=== PATIENT | female | born 1965 | race Caucasian/White ===

== ENCOUNTER 2016-12-30 09:58 | Emergency (ER) | payer OTHER ==
[2016-12-30] MEDS ORDERED: NS 0.9% 1000 ML* 2,000 ML IV ONE (11:43)
[2016-12-30 12:38] LABS: Urine Bilirubin Negative (Negative); Urine Glucose Negative (Negative); Urine Nitrite Negative (Negative)
[2016-12-30 12:52] LABS: Hematocrit 43 % (35-47); Hemoglobin 14.2 g/dl (12.0-16.0); Mean Corpuscular HGB Conc 33 g/dl (31-36); Mean Corpuscular Hemoglobin 29 pg (27-31); Mean Corpuscular Volume 88 fL (80-97); Mean Platelet Volume 11 um3 (7.4-10.4); Red Blood Count 4.85 10^6/ul (4.0-5.4); Red Cell Distribution Width 13 % (10.5-15); White Blood Count 8.6 10^3/ul (3.5-10.8)
[2016-12-30 13:14] LABS: Albumin 4.5 g/dL (3.2-5.2); BUN/Creatinine Ratio 27.1 (8-20); C Reactive Protein 4.86 mg/L (< 5.00); Calcium 10.2 mg/dL (8.6-10.3); EGFR African American 90.3 (>60); EGFR Non-African American 70.2 (>60); Globulin 2.8 g/dL (2-4); Potassium 3.7 mmol/L (3.5-5.0); Total Bilirubin 0.5 mg/dL (0.2-1.0); Total Protein 7.3 g/dL (6.4-8.9)
[2016-12-30] MEDS ORDERED: Ondansetron INJ* 2 MG/ML VIAL IV ONE (14:07)
--- NOTE | 2016-12-30 14:13 | ED ---
Abdominal Pain/Female - HPI Summary HPI Summary: Pt is a 51 yo WF presents to the ED with report of abdominal pain x 18 hours. Pt states woke approx 1am with RLQ pain. pt states pain increased throughout the morning hours. Pt states took Naproxyn with improvement. Pt states went to work (works at [employer]) and reports pain continued to be present and mild through the day. Pt states has mild nausea, no vomiting. no fevers, chills, rash. no SUAZO, vision changes. Pt denies trauma. No dysuria, hematuria. No diarrhea. No blood, black stools. No vaginal discharge, odor, itching. Pt is post-menopausal. Pt does have MS and take Copaxone. - History of Current Complaint Chief Complaint: EDAbdPain Stated Complaint: ABD PAIN Time Seen by Provider: 12/30/16 13:48 Hx Last Menstrual Period: february 2016 ?: No Onset/Duration: Gradual Onset, Lasting Hours Timing: Constant Severity Currently: Mild Pain Intensity: 2 Pain Scale Used: 0-10 Numeric Location: Discrete At: RLQ Radiates: No Character: Other: - pressure, ache Aggravating Factor(s): Movement, Other: - palpation Alleviating Factor(s): Position Associated Signs and Symptoms: Positive: Negative. Negative: Diaphoresis, Fever , Cough, Chest Pain, Back Pain Allergies/Adverse Reactions: Allergies Allergy/AdvReac Type Severity Reaction Status Date / Time Sulfa Drugs Allergy Rash Verified 12/30/16 10:05 Home Medications: Home Medications Naproxen TAB* [Naprosyn TAB*] 250 mg PO Q8H PRN 12/30/16 [History Confirmed ] PMH/Surg Hx/FS Hx/Imm Hx Previously Healthy: Yes Endocrine/Hematology History: Denies: Hx Diabetes Cardiovascular History: Denies: Hx Hypertension, Hx Pacemaker/ICD Respiratory History: Reports: Hx Asthma - exercise induced, Hx Seasonal Allergies History: Denies: Hx Dialysis, Hx Renal Disease Sensory History: Denies: Hx Hearing Aid Neurological History: Reports: Other Neuro Impairments/Disorders - MS Psychiatric History: Denies: Hx Panic Disorder - Cancer History Hx Chemotherapy: No Hx Radiation Therapy: No - Surgical History Surgery Procedure, Year, and Place: 1994 Infectious Disease History: No Infectious Disease History: Denies: Traveled Outside the [place] in Last 30 Days - Family History Known Family History: Positive: Cardiac Disease - Social History Alcohol Use: None Substance Use Type: Reports: None Smoking Status (MU): Never Smoked Tobacco Have You Smoked in the Last Year: No Review of Systems Positive: Fatigue. Negative: Chills Eyes: Negative ENT: Negative Cardiovascular: Negative Negative: Palpitations, Chest Pain Respiratory: Negative Negative: Shortness Of Breath, Cough Positive: Abdominal Pain, Nausea. Negative: Vomiting, Diarrhea Genitourinary: Negative Skin: Negative Neurological: Negative Psychological: Normal All Other Systems Reviewed And Are Negative: Yes Physical Exam Triage Information Reviewed: Yes Vital Signs On Initial Exam: Initial Vitals Temp Pulse Resp BP Pulse Ox 96.1 F 78 16 156/85 96 12/30/16 10:01 12/30/16 10:01 12/30/16 10:12/30/16 10:12/30/16 10:01 Vital Signs Reviewed: Yes Appearance: Positive: Well-Appearing, No Pain Distress, Well-Nourished Skin: Positive: Warm, Skin Color Reflects Adequate Perfusion, Dry Head/Face: Positive: Normal Head/Face Inspection Eyes: Positive: Normal, EOMI, ROBERT ENT: Positive: TMs normal Neck: Positive: Supple, Nontender Respiratory/Lung Sounds: Positive: Clear to Auscultation, Breath Sounds Present. Negative: Decreased Breath Sounds Cardiovascular: Positive: Normal, RRR. Negative: Murmur Abdomen Description: Negative: Nontender - + TTP RLQ no guarding, no rebound present/decreased BS Bowel Sounds: Positive: Present Musculoskeletal: Positive: Normal Neurological: Positive: Normal, Sensory/Motor Intact, Alert, Oriented to Person Place, Time Psychiatric: Positive: Normal AVPU Assessment: Alert - Dur[place] Coma Scale Best Eye Response: 4 - Spontaneous Best Motor Response: 6 - Obeys Commands Best Verbal Response: 5 - Oriented Diagnostics - Vital Signs Vital Signs Temp Pulse Resp BP Pulse Ox 12/30/16 11:28 99 F 66 20 112/73 98 12/30/16 10:01 96.1 F 78 16 156/85 96 - Laboratory Lab Results: Lab Results 12/30/16 12/30/16 12/30/16 Range/Units 10:08 12:25 12:25 WBC 8.6 (3.5-10.8) 10^3/ul RBC 4.85 (4.0-5.4) 10^6/ul Hgb 14.2 (12.0-16.0) g/dl Hct 43 (35-47) % MCV 88 (80-97) fL MCH 29 (27-31) pg MCHC 33 (31-36) g/dl RDW 13 (10.5-15) % Plt Count 210 (150-450) 10^3/ul MPV 11 H (7.4-10.4) um3 Neut % (Auto) 54.0 (38-83) % Lymph % (Auto) 26.8 (25-47) % [place] % (Auto) 10.9 H (1-9) % Eos % (Auto) 7.6 H (0-6) % Baso % (Auto) 0.7 (0-2) % Absolute Neuts (auto) 4.6 (1.5-7.7) 10^3/ul Absolute Lymphs (auto) 2.3 (1.0-4.8) 10^3/ul Absolute Monos (auto) 0.9 H (0-0.8) 10^3/ul Absolute Eos (auto) 0.7 H (0-0.6) 10^3/ul Absolute Basos (auto) 0.1 (0-0.2) 10^3/ul Absolute Nucleated RBC 0 10^3/ul Nucleated RBC % 0.1 Sodium 139 (133-145) mmol/L Potassium 3.7 (3.5-5.0) mmol/L Chloride 106 (101-111) mmol/L Carbon Dioxide 25 (22-32) mmol/L Anion Gap 8 (2-11) mmol/L BUN 23 (6-24) mg/dL Creatinine 0.85 (0.51-0.95) mg/dL Est GFR ( Amer) 90.3 (>60) Est GFR (Non-Af Amer) 70.2 (>60) BUN/Creatinine Ratio 27.1 H (8-20) Glucose 91 (70-100) mg/dL Lactic Acid (0.5-2.0) mmol/L Calcium 10.2 (8.6-10.3) mg/dL Total Bilirubin 0.50 (0.2-1.0) mg/dL AST 30 (13-39) U/L ALT 37 (7-52) U/L Alkaline Phosphatase 77 (34-104) U/L C-Reactive Protein 4.86 (< 5.00) mg/L Total Protein 7.3 (6.4-8.9) g/dL Albumin 4.5 (3.2-5.2) g/dL Globulin 2.8 (2-4) g/dL Albumin/Globulin Ratio 1.6 (1-3) Lipase 23 (11.0-82.0) U/L Urine Color Leila Urine Appearance Cloudy Urine pH 6.0 (5-9) Ur Specific [place] 1.027 (1.010-1.030) Urine Protein Negative (Negative) Urine Ketones Negative (Negative) Urine Blood Negative (Negative) Urine Nitrate Negative (Negative) Urine Bilirubin Negative (Negative) Urine Urobilinogen Negative (Negative) Ur Leukocyte Esterase Negative (Negative) Urine Glucose Negative (Negative) Urine Ascorbic Acid * H (Negative) 12/30/16 Range/Units 12:25 WBC (3.5-10.8) 10^3/ul RBC (4.0-5.4) 10^6/ul Hgb (12.0-16.0) g/dl Hct (35-47) % MCV (80-97) fL MCH (27-31) pg MCHC (31-36) g/dl RDW (10.5-15) % Plt Count (150-450) 10^3/ul MPV (7.4-10.4) um3 Neut % (Auto) (38-83) % Lymph % (Auto) (25-47) % [place] % (Auto) (1-9) % Eos % (Auto) (0-6) % Baso % (Auto) (0-2) % Absolute Neuts (auto) (1.5-7.7) 10^3/ul Absolute Lymphs (auto) (1.0-4.8) 10^3/ul Absolute Monos (auto) (0-0.8) 10^3/ul Absolute Eos (auto) (0-0.6) 10^3/ul Absolute Basos (auto) (0-0.2) 10^3/ul Absolute Nucleated RBC 10^3/ul Nucleated RBC % Sodium (133-145) mmol/L Potassium (3.5-5.0) mmol/L Chloride (101-111) mmol/L Carbon Dioxide (22-32) mmol/L Anion Gap (2-11) mmol/L BUN (6-24) mg/dL Creatinine (0.51-0.95) mg/dL Est GFR ( Amer) (>60) Est GFR (Non-Af Amer) (>60) BUN/Creatinine Ratio (8-20) Glucose (70-100) mg/dL Lactic Acid 1.0 (0.5-2.0) mmol/L Calcium (8.6-10.3) mg/dL Total Bilirubin (0.2-1.0) mg/dL AST (13-39) U/L ALT (7-52) U/L Alkaline Phosphatase (34-104) U/L C-Reactive Protein (< 5.00) mg/L Total Protein (6.4-8.9) g/dL Albumin (3.2-5.2) g/dL Globulin (2-4) g/dL Albumin/Globulin Ratio (1-3) Lipase (11.0-82.0) U/L Urine Color Urine Appearance Urine pH (5-9) Ur Specific [place] (1.010-1.030) Urine Protein (Negative) Urine Ketones (Negative) Urine Blood (Negative) Urine Nitrate (Negative) Urine Bilirubin (Negative) Urine Urobilinogen (Negative) Ur Leukocyte Esterase (Negative) Urine Glucose (Negative) Urine Ascorbic Acid (Negative) Result Diagrams: 12/30/16 12:25 12/30/16 12:25 Lab Statement: Any lab studies that have been ordered have been reviewed, and results considered in the medical decision making process. Re-Evaluation - Re-Evaluation First Eval Re-Evaluation Time: 15:00 Change: Improved Comment: drinking contrast. No needs Second Eval Re-Evaluation Time: 17:43 Comment: Pt feeling well. No nausea, vomiting. Reviewed CT with pt. Will discharge home clears to bland. PCP f.u. work note. Pt in agreement with plan Abdominal Pain Fem Course/Dx - Course Course Of Treatment: Pt with progressive RLQ pain with nausea since this morning. pt with nausea, no vomiting - Diagnoses Differential Diagnosis: Positive: Appendicitis, Other - colitis diverticulitis Provider Diagnoses: Diverticulosis, Abdominal pain Discharge - Discharge Plan Condition: Stable Disposition: HOME Patient Education Materials: Abdominal Pain (ED) Forms: *Work Release Referrals: Dalia Yu MD [Primary Care Provider] - Additional Instructions: - Stay well hydrated. Drink plenty of non-alcoholic, non-caffinated beverages - Okay to alternate ibuprofen (advil, motirn) and tylenol every 3 hours for pain. Take with food. do NOT take for more than 4-5 days - It is recommended you have small, frequent bland foods - dry toast, scrambled eggs, noodles without sauce, oatmeal, bananas - If you tolerate this, slowly add food to your diet. Wait until you are feeling better before eating spicy food, acidic food, tomato based food - Call your doctor to schedule a follow-up appointment. Call your doctor or return with questions or concerns
[2016-12-30] MEDS ORDERED: NS 0.9% 1000 ML* 1,000 ML IV SCH (14:15)
[2016-12-30] MEDS ORDERED: Iohexol 300* (CONTRAST) 10 ML SDV IV ONE (16:26)
--- NOTE | 2016-12-30 17:02 | RAD ---
INDICATION: Right lower quadrant abdominal pain, immunosuppressed. COMPARISON: There are no prior studies available for comparison. TECHNIQUE: A CT scan of the abdomen and pelvis was performed with intravenous and oral contrast following intravenous injection of 150 ml of Omnipaque 300 nonionic contrast. Contiguous axial sections were obtained from the lung bases through the symphysis pubis. Images were reconstructed in the coronal and sagittal planes. FINDINGS: The lung bases are clear. No pleural effusion is present. The liver and spleen are mildly enlarged. The liver is decreased in attenuation consistent with fatty infiltration. No significant focal abnormality is seen. The patient is status post cholecystectomy. The pancreas appears to be within normal limits. The kidneys and adrenal glands are normal in size. No hydronephrosis is seen. No significant focal renal abnormality is seen. The aorta is normal in caliber and demonstrates homogeneous contrast opacification. No significant enlarged retroperitoneal lymph nodes are seen. The stomach, small and large bowel appear nondistended. The appendix partially fills with contrast and is not enlarged. There is no evidence for inflammatory change. There is mild descending and sigmoid diverticulosis without evidence for diverticulitis. The uterus is anteverted and normal in size. No free intraperitoneal air or fluid is seen. No significant focal osseous abnormality is seen. IMPRESSION: 1. NO EVIDENCE FOR ACUTE FINDING OR CAUSE FOR THE PATIENT'S ABDOMINAL PAIN IS SEEN. 2. STATUS POST CHOLECYSTECTOMY. 3. MILD HEPATOSPLENOMEGALY AND HEPATIC STEATOSIS.
[2016-12-30 18:01] VITALS: BP 116/62
== END 2016-12-30 18:01 | disposition home or self-care (01) ==
LOC: ED 09:58
DX: K57.90 Diverticulosis of intestine, part unspecified, without perforation or abscess without bleeding (principal); J45.990 Exercise induced bronchospasm; G35 Multiple sclerosis; R10.31 Right lower quadrant pain; Z88.2 Allergy status to sulfonamides
CPT/HCPCS: 36415; 74177; 80053; 81003; 83605; 83690; 85025; 86140; 96374; 99283; J2405; Q9967